=== PATIENT | male | born 1995 | race Caucasian/White ===

== ENCOUNTER 2018-09-21 17:52 | Emergency (ER) | payer BC ==
[~2018-09-21] VITALS: Ht 172.7 cm; Wt 81.8 kg
[2018-09-21] MEDS ORDERED: PAXI20TA29 PO (18:43)
[2018-09-21] MEDS ORDERED: CYCL10TA PO (20:25)
[2018-09-21] MEDS ORDERED: NAPR-837 PO (20:25)
[2018-09-21 20:27] VITALS: BP 128/74
[2018-09-21] MEDS ORDERED: CYCLOBENZAPRINE 10 MG TAB PO ONE (20:30)
[2018-09-21] MEDS ORDERED: NAPROXEN 250 MG TAB PO ONE (20:30)
--- NOTE | 2018-09-22 08:23 | REP ---
Thoracic spine three views: Vertebral body heights, interspacing alignment are normal. The pedicles are unremarkable. Mineralization is normal. There are no calcifications or foreign bodies. Impression: Negative thoracic spine. Electronically Signed by Braxton Unger MD 09/22/2018 08:14 A
== END 2018-09-21 20:35 | disposition home or self-care (01) ==
LOC: M ED 17:52
DX: S20.229A Contusion of unspecified back wall of thorax, initial encounter (principal); X58.XXXA Exposure to other specified factors, initial encounter; Y92.89 Other specified places as the place of occurrence of the external cause; M62.830 Muscle spasm of back; F41.9 Anxiety disorder, unspecified; Z79.899 Other long term (current) drug therapy; F17.210 Nicotine dependence, cigarettes, uncomplicated